=== PATIENT | female | born 1990 | race Caucasian/White ===

== ENCOUNTER 2023-06-16 12:16 | Emergency (ER) | payer OTHER ==
[~2023-06-16] VITALS: Ht 165.1 cm; Wt 78.0 kg
[2023-06-16 12:25] VITALS: BP 107/63; PULSE 88; RESP 20; TEMP 99; O2SAT 97
[2023-06-16] MEDS ORDERED: IBUP-2213 PO (13:43)
== END 2023-06-16 13:48 | disposition home or self-care (01) ==
LOC: MED 12:16
DX: R07.81 Pleurodynia (principal); Z79.1 Long term (current) use of non-steroidal anti-inflammatories (NSAID)
CPT/HCPCS: 71045; 99283